=== PATIENT | male | born 1930 | race Caucasian/White ===

== ENCOUNTER 2017-03-30 05:20 | Inpatient (IN) | payer OTHER, BC ==
[2017-03-22 12:54] LABS: HEMATOCRIT 36.3 % (42.0-52.0); HEMOGLOBIN 11.9 gm/dL (14.0-18.0); MCH 29.5 pg (26.0-34.0); MCHC 32.9 g/dL (28.0-37.0); MCV 89.6 fL (80.0-100.0); RBC 4.06 mil/uL (4.50-6.00); RDW 13.7 % (10.5-14.5); WBC 12.8 thou/uL (4.0-11.0)
[2017-03-22 13:07] LABS: URINE BILIRUBIN NEGATIVE (Negative); URINE BLOOD NEGATIVE (Negative); URINE COLOR YELLOW; URINE GLUCOSE-RANDOM* NEGATIVE (Negative); URINE KETONES NEGATIVE (Negative); URINE LEUKOCYTES-REFLEX NEGATIVE (Negative); URINE PROTEIN (DIPSTICK) 1+ (Negative); URINE SPECIFIC GRAVITY >= 1.030 (1.003-1.035)
[2017-03-22 13:10] LABS: ALBUMIN 3.5 g/dL (3.4-5.0); CALCIUM 9.3 mg/dL (8.5-10.1); POTASSIUM 4.2 mmol/L (3.5-5.1); TOTAL BILIRUBIN 0.6 mg/dL (<0.1-1.0); TOTAL PROTEIN 7.1 g/dL (6.4-8.2)
[2017-03-22 13:50] LABS: CASTS None Seen /LPF (None Seen); CRYSTALS None Seen /LPF (None Seen); HYALINE CASTS 0-3 Few /LPF (None Seen); SQUAMOUS None Seen /LPF (0-3)
[2017-03-22 13:51] LABS: URINE RBC None Seen /HPF (0-2); URINE WBC-REFLEX None Seen /HPF (0-5)
[2017-03-22 14:11] LABS: APTT 29.2 Seconds (24.5-32.8); PROTIME 10.6 Seconds (9.3-11.4)
[~2017-03-30] VITALS: Ht 172.7 cm; Wt 55.8 kg
[2017-03-30] VITALS (19 sets, daily range): BP systolic 82–146; BP diastolic 48–87
--- NOTE | ~2017-03-30 | EKG ---
[address] [address] ELECTROCARDIOGRAM REPORT Name: EVERTON LUNA Room #: PRE IN [facility]#: [id number] Admission: Attend Phys: Francisco Hankins MD Discharge: Date of : [birth year] Report #: [id number] THIS REPORT FOR: //name// [facility] Test Date: 2017-03-22 Test Time: 12:52:44 Pat Name: EVERTON LUNA Department: Room: Gender: [employer]: salinas roman : 1930 Requested By: Francisco Hankins Order Number: [id number] MD: Jose Angel Tejada Measurements Intervals [place] Rate: 66 P: 139 [place]: 154 QRS: 115 QRSD: 97 T: -15 QT: 412 QTc: 432 Interpretive Statements NSR Nonspecific repol abnormality, inferior leads Electronically Signed On 03-22-2017 21:48:12 [employer] by Jose Angel Tejada [email or web address] <ELECTRONICALLY SIGNED> By: Jose Angel Tejada MD 03/22/17 2148 [id number] 1252 Jose Angel Tejada MD /JOSEF
[~2017-03-30 05:20] MED LIST: ALTACE10 MG PO; ASPIR 8181 MG PO; ATORVASTATIN CA40 MG PO; COSOPT OCUMETER10 M1 OPHTHALMIC; ISOSORBIDE MONO30 M1 PO; LOPRESSOR25 PO; LUMIGAN2.5 M1 OPHTHALMIC; MEGESTROL ACETA40 MG PO; TUMS PO
[2017-03-31] VITALS (23 sets, daily range): BP systolic 83–142; BP diastolic 43–62
[2017-03-31 04:33] LABS: HEMATOCRIT 28.5 % (42.0-52.0); HEMOGLOBIN 9.4 gm/dL (14.0-18.0); MCH 29.6 pg (26.0-34.0); MCHC 32.9 g/dL (28.0-37.0); MCV 90.1 fL (80.0-100.0); RBC 3.17 mil/uL (4.50-6.00); RDW 13.9 % (10.5-14.5); WBC 8.5 thou/uL (4.0-11.0)
[2017-03-31 04:44] LABS: CALCIUM 8.6 mg/dL (8.5-10.1); CREATININE 0.9 mg/dL (0.7-1.3); POTASSIUM 4.9 mmol/L (3.5-5.1)
[2017-04-01 00:30] VITALS: BP 110/56
[2017-04-01 04:15] VITALS: BP 112/58
[2017-04-01 04:36] LABS: HEMATOCRIT 29.9 % (42.0-52.0); HEMOGLOBIN 9.8 gm/dL (14.0-18.0)
[2017-04-01 04:48] LABS: CALCIUM 8.5 mg/dL (8.5-10.1); CREATININE 0.8 mg/dL (0.7-1.3); POTASSIUM 4.5 mmol/L (3.5-5.1)
[2017-04-01 08:25] VITALS: BP 106/46
[2017-04-01] MEDS ORDERED: TOPROL XL25 MG PO (09:59)
[2017-04-01] MEDS ORDERED: NORCO 5-325 TA1 EACH PO (10:01)
[2017-04-01 10:26] VITALS: BP 106/46
[2017-04-01 11:36] VITALS: BP 106/46
[2017-04-01 12:07] VITALS: BP 106/46
== END 2017-04-01 13:42 | disposition home health service (06) | DRG 269 ==
LOC: TBA 05:20 → EDSTATUS 05:20 → OR 05:20 → PRE 05:23 → ICU 16:11 → OR 16:12 → ICU 16:13 → 2N 03-31 17:51 → ENTRNSPT 04-01 13:32 → EDTRNSPTSTS 04-01 13:35 → 2N 04-01 13:42
PROVIDERS: Nurse Practitioner; Thoracic Surgery (Cardiothoracic Vascular Surgery)
PROC: 04V03DZ Restriction of Abdominal Aorta with Intraluminal Device, Percutaneous Approach (ICD-10-PCS; principal; 2017-03-30)
PROC: 03HY32Z Insertion of Monitoring Device into Upper Artery, Percutaneous Approach (ICD-10-PCS; 2017-03-30)
PROC: 4A133B1 Monitoring of Arterial Pressure, Peripheral, Percutaneous Approach (ICD-10-PCS; 2017-03-30)
PROC: 4A133J1 Monitoring of Arterial Pulse, Peripheral, Percutaneous Approach (ICD-10-PCS; 2017-03-30)
PROC: 04793DZ Dilation of Right Renal Artery with Intraluminal Device, Percutaneous Approach (ICD-10-PCS; 2017-03-30)
PROC: B4181ZZ Fluoroscopy of Bilateral Renal Arteries using Low Osmolar Contrast (ICD-10-PCS; 2017-03-30)
DX: I71.4 Abdominal aortic aneurysm, without rupture (principal); D62 Acute posthemorrhagic anemia; I25.10 Atherosclerotic heart disease of native coronary artery without angina pectoris; I95.1 Orthostatic hypotension; I73.9 Peripheral vascular disease, unspecified; N40.0 Benign prostatic hyperplasia without lower urinary tract symptoms; E78.5 Hyperlipidemia, unspecified; Z79.899 Other long term (current) drug therapy; Z79.82 Long term (current) use of aspirin; Z87.891 Personal history of nicotine dependence; Z23 Encounter for immunization
CPT/HCPCS: 10078; 10081; 47375; 50010; 50101; 50386; 50455; 51078; 54118; 55022; 56524; 56526; 56527; 56639; 56668; 56760; 57093; 62110; 62900; 65002; 65020; 65040; 65090; 70005

== ENCOUNTER → 2017-05-04 | Outpatient (CLI) | payer OTHER, BC ==
[~2017-05-04] MED LIST changes: +NORCO 5-325 TA1 EACH PO; +TOPROL XL25 MG PO
[2017-05-04 09:33] LABS: CREATININE 0.9 mg/dL (0.7-1.3)
== END ==
LOC: CAT 08:51
PROVIDERS: Nuclear Medicine Nuclear Cardiology
DX: Z01.812 Encounter for preprocedural laboratory examination (principal); I71.4 Abdominal aortic aneurysm, without rupture; K55.069 Acute infarction of intestine, part and extent unspecified; J98.4 Other disorders of lung; M47.895 Other spondylosis, thoracolumbar region; M16.0 Bilateral primary osteoarthritis of hip; N28.1 Cyst of kidney, acquired; Z95.828 Presence of other vascular implants and grafts